=== PATIENT | male | born 1965 | race African-American/Black ===

== ENCOUNTER 2021-05-17 20:12 | Inpatient (IN) | payer OTHER ==
[2021-05-17 23:23] VITALS: BMI 33.9
[2021-05-18] MEDS ORDERED: MAG HYDROX/AL HYDROX/SIMETH 30 ML UNIT-DOSE CUP PO PRN (02:59)
[2021-05-18] MEDS ORDERED: ONDANSETRON *ODT* 4 MG TABLET SL PRN (02:59)
[2021-05-18] MEDS ORDERED: ACETAMINOPHEN 325 MG TABLET (FP) PO PRN ×2 (02:59)
[2021-05-18] MEDS ORDERED: MENTHOL/PHENOL 1 EACH UD MM PRN (02:59)
[2021-05-18] MEDS ORDERED: BISMUTH SUBSALICYLATE 524 MG/30 ML PO PRN (02:59)
[2021-05-18] MEDS ORDERED: MAGNESIUM CITRATE 300 ML BOTTLE PO PRN (02:59)
[2021-05-18] MEDS ORDERED: MELATONIN 5 MG TABLETS PO PRN (02:59)
[2021-05-18] MEDS ORDERED: MAGNESIUM HYDROX 2400MG/30ML ORAL SUSPENSION 30 ML CUP PO PRN (02:59)
[2021-05-18] MEDS ORDERED: IBUPROFEN 400 MG TABLET (FP) PO PRN (02:59)
[2021-05-18] MEDS ORDERED: NICOTINE POLACRILEX 2 MG GUM BUC PRN (02:59)
[2021-05-18] MEDS ORDERED: ALBUTEROL SULFATE IH PRN (03:07)
[2021-05-18] MEDS ORDERED: HYDROCHLOROTHIAZIDE 25 MG TABLET (FP) PO ONE (09:16)
[2021-05-18] MEDS ORDERED: LISINOPRIL 5 MG TABLET PO ONE (09:17)
[2021-05-18] MEDS ORDERED: ALBUTEROL SO4 HFA INHALER IH PRN (09:30)
[2021-05-18] MEDS ORDERED: HYDROCHLOROTHIAZIDE 25 MG PO SCH (10:00)
[2021-05-18] MEDS ORDERED: SYMBICORT IH SCH (10:00)
[2021-05-18] MEDS ORDERED: BENFOTIAMINE 150 MG PO SCH (10:00)
[2021-05-18] MEDS ORDERED: FUROSEMIDE 20 MG TABLET (FP) PO SCH (10:00)
[2021-05-18] MEDS ORDERED: PATIENT'S OWN MEDICATION (NON-FORMULARY) (Meloxicam 15 MG) PO SCH (10:00)
[2021-05-18] MEDS ORDERED: PATIENT'S OWN MEDICATION (NON-FORMULARY) (Atorvastatin Ca 40 MG) PO SCH (10:00)
[2021-05-18] MEDS ORDERED: LISINOPRIL 5 MG PO SCH (10:00)
[2021-05-18] MEDS ORDERED: ALPHA LIPOIC ACID 200 MG PO SCH (10:00)
[2021-05-18] MEDS ORDERED: NIFEDIPINE 20 MG PO SCH (10:00)
[2021-05-18] MEDS: PRENATAL VITAMINS W/ FOLIC ACID TABLET (FP) PO SCH (10:26)
[2021-05-18] MEDS: BACITRACIN 0.9 GM PACKET TP SCH (10:28)
[2021-05-18 11:35] LABS: HEMATOCRIT 39.6 % (35.4-49); HEMOGLOBIN 13.5 GM/dL (11.7-16.9); MCH 33.2 pg (25.7-33.7); MEAN CELL VOLUME 97.5 fl (80-96); MEAN PLT VOLUME 8.2 fl (7.5-11.1); PLATELET COUNT 241 10^3/uL (134-434); RBC 4.07 M/mm3 (4.00-5.60); WHITE BLOOD COUNT 3.9 K/mm3 (4.0-10.0)
[2021-05-18 12:02] LABS: ALBUMIN 2.4 g/dl (3.4-5.0); CALCIUM 8.2 mg/dL (8.5-10.1)
[2021-05-18 12:06] LABS: CREATININE 1.5 mg/dL (0.55-1.3)
[2021-05-18 12:07] LABS: TOT PROT 6.7 g/dl (6.4-8.2)
[2021-05-18 12:08] LABS: BILIRUBIN,TOTAL 1.1 mg/dL (0.2-1)
[2021-05-18 12:47] LABS: HIV INTERPRETATION NEGATIVE (NEGATIVE)
[2021-05-18] MEDS ORDERED: diazePAM 5 MG TABLET PO PRN (14:46)
[2021-05-18] MEDS: ASPIRIN 81 MG CHEWABLE TABLETS PO SCH (15:18)
[2021-05-18] MEDS: METHOCARBAMOL 500 MG TABLET PO PRN (18:14)
[2021-05-19] MEDS: THIAMINE HCL 100 MG TABLET (FP) PO SCH ×2 (00:02→22:28)
[2021-05-19] MEDS: BUDESONIDE/FORMETEROL FUMARATE 160/4.5 mcg INHALER IH SCH ×3 (00:02→22:26)
[2021-05-19] MEDS ORDERED: diazePAM 5 MG TABLET PO PRN (08:50)
[2021-05-19] MEDS: HYDROCHLOROTHIAZIDE 25 MG TABLET (FP) PO SCH (10:51)
[2021-05-19] MEDS: LISINOPRIL 5 MG TABLET PO SCH (10:51)
[2021-05-19] MEDS: PRENATAL VITAMINS W/ FOLIC ACID TABLET (FP) PO SCH (10:51)
[2021-05-19] MEDS: ASPIRIN 81 MG CHEWABLE TABLETS PO SCH (10:51)
[2021-05-19] MEDS: BACITRACIN 0.9 GM PACKET TP SCH ×3 (10:52→22:25)
[2021-05-19] MEDS: BICTEGRAV/EMTRICIT/TENOFOV (BIKTARVY) 50-200-25 MG TABLET PO SCH (10:56)
[2021-05-19] MEDS: diazePAM 5 MG TABLET PO SCH ×2 (13:13→22:25)
[2021-05-19] MEDS: ATORVASTATIN CA 40 MG TABLET (FP) PO SCH ×2 (22:25)
[2021-05-19] MEDS: hydrOXYzine PAMOATE 25 MG CAPSULE (FP) PO PRN (22:28)
[2021-05-20] MEDS: diazePAM 5 MG TABLET PO SCH ×2 (05:30→18:23)
[2021-05-20] MEDS: PRENATAL VITAMINS W/ FOLIC ACID TABLET (FP) PO SCH (10:47)
[2021-05-20] MEDS: METHOCARBAMOL 500 MG TABLET PO PRN (10:47)
[2021-05-20] MEDS: hydrOXYzine PAMOATE 25 MG CAPSULE (FP) PO PRN (10:47)
[2021-05-20] MEDS: ASPIRIN 81 MG CHEWABLE TABLETS PO SCH (10:47)
[2021-05-20] MEDS: BUDESONIDE/FORMETEROL FUMARATE 160/4.5 mcg INHALER IH SCH ×2 (10:48→23:24)
[2021-05-20] MEDS: BACITRACIN 0.9 GM PACKET TP SCH ×2 (10:49→23:28)
[2021-05-20] MEDS: HYDROCHLOROTHIAZIDE 25 MG TABLET (FP) PO SCH (10:49)
[2021-05-20] MEDS: LISINOPRIL 5 MG TABLET PO SCH (10:49)
[2021-05-20] MEDS: BICTEGRAV/EMTRICIT/TENOFOV (BIKTARVY) 50-200-25 MG TABLET PO SCH (10:49)
[2021-05-20] MEDS: LISINOPRIL 10 MG TABLET PO SCH (15:48)
[2021-05-20] MEDS ORDERED: SUVOREXANT 10 MG TABLET PO PRN (22:00)
[2021-05-20] MEDS: ATORVASTATIN CA 40 MG TABLET (FP) PO SCH (23:23)
[2021-05-20] MEDS: THIAMINE HCL 100 MG TABLET (FP) PO SCH (23:24)
[2021-05-21] MEDS ORDERED: diazePAM 5 MG TABLET PO ONE (05:00)
[2021-05-21] MEDS: BICTEGRAV/EMTRICIT/TENOFOV (BIKTARVY) 50-200-25 MG TABLET PO SCH (08:37)
[2021-05-21 09:51] VITALS: BP 155/97; PULSE 93; TEMP 98.2
[2021-05-21] MEDS: PRENATAL VITAMINS W/ FOLIC ACID TABLET (FP) PO SCH (10:55)
[2021-05-21] MEDS: HYDROCHLOROTHIAZIDE 25 MG TABLET (FP) PO SCH (10:55)
[2021-05-21] MEDS: LISINOPRIL 10 MG TABLET PO SCH (10:55)
[2021-05-21] MEDS: BACITRACIN 0.9 GM PACKET TP SCH (10:55)
[2021-05-21] MEDS: ASPIRIN 81 MG CHEWABLE TABLETS PO SCH (10:55)
[2021-05-21] MEDS: BUDESONIDE/FORMETEROL FUMARATE 160/4.5 mcg INHALER IH SCH (10:57)
== END 2021-05-21 11:15 | disposition home or self-care (01) | DRG 773 ==
LOC: YASAS 20:12 → UNDOADMIN 05-18 02:06 → Y6N 05-18 02:06
PROVIDERS: ADMIT Allergy & Immunology; ATTEND Allergy & Immunology
PROC: HZ2ZZZZ Detoxification Services for Substance Abuse Treatment (ICD-10-PCS; principal; 2021-05-18)
DX: F10.230 Alcohol dependence with withdrawal, uncomplicated (principal); F11.10 Opioid abuse, uncomplicated; F14.20 Cocaine dependence, uncomplicated; F12.20 Cannabis dependence, uncomplicated; F17.210 Nicotine dependence, cigarettes, uncomplicated; F19.280 Other psychoactive substance dependence with psychoactive substance-induced anxiety disorder; F19.282 Other psychoactive substance dependence with psychoactive substance-induced sleep disorder; F39 Unspecified mood [affective] disorder; I10 Essential (primary) hypertension; J45.909 Unspecified asthma, uncomplicated; K21.9 Gastro-esophageal reflux disease without esophagitis; L97.511 Non-pressure chronic ulcer of other part of right foot limited to breakdown of skin; Z62.810 Personal history of physical and sexual abuse in childhood; Z91.410 Personal history of adult physical and sexual abuse; Z86.59 Personal history of other mental and behavioral disorders
CPT/HCPCS: 36415; 80053; 85027; 86780; 87389; 93005; 93010; C9803; U0003; U0005